=== PATIENT | female | born 1945 | race Caucasian/White ===

== ENCOUNTER → 2016-11-16 | Outpatient (CLI) | payer OTHER, MEDICARE | LOC: RAD 01:53 | DX: Z12.31 Encounter for screening mammogram for malignant neoplasm of breast (principal) ==

== ENCOUNTER 2016-11-29 11:40 | Emergency (ER) | payer OTHER, MEDICARE ==
[~2016-11-29] VITALS: Ht 160 cm; Wt 54.4 kg
[2016-11-29] MEDS ORDERED: LEXAPRO20 MG PO (11:57)
[2016-11-29] MEDS ORDERED: WELLBUTRIN SR150 MG PO (11:57)
[2016-11-29] MEDS ORDERED: ESTROPIPATE0.75 MG PO (11:58)
[2016-11-29] MEDS ORDERED: HYDROCHLOROTHIA25 M1 PO (11:58)
[2016-11-29] MEDS ORDERED: ZOCOR40 MG PO (11:59)
[2016-11-29] MEDS ORDERED: SINGULAIR 10 MG10 M1 PO (11:59)
[2016-11-29] MEDS ORDERED: LEVOTHYROXINE0.05 MG PO (11:59)
[2016-11-29] MEDS ORDERED: TRAZODONE HCL100 MG PO (11:59)
[2016-11-29] MEDS ORDERED: AMBIEN 5 MG TABL5 M1 PO (12:00)
[2016-11-29] MEDS ORDERED: VALTREX 500 MG500 M1 PO (12:00)
[2016-11-29 12:24] LABS: URINE BILIRUBIN NEGATIVE (Negative); URINE BLOOD NEGATIVE (Negative); URINE COLOR YELLOW; URINE GLUCOSE-RANDOM* NEGATIVE (Negative); URINE KETONES NEGATIVE (Negative); URINE NITRITE NEGATIVE (Negative); URINE PROTEIN (DIPSTICK) NEGATIVE (Negative); URINE UROBILINOGEN 0.2 E.U./dl (0.2-1.0)
[2016-11-29 12:31] LABS: HEMATOCRIT 37.5 % (37.0-47.0); HEMOGLOBIN 12.8 gm/dL (12.0-15.0); MCH 30.1 pg (26.0-34.0); MCV 88.7 fL (80.0-100.0); PLATELET COUNT 289 thou/uL (150-400); RBC 4.23 mil/uL (4.20-5.00); RDW 13.3 % (10.5-14.5); WBC 22.8 thou/uL (4.0-11.0)
[2016-11-29 12:37] LABS: MANUAL DIFF YES
[2016-11-29 13:00] LABS: ABSOLUTE NEUTROPHILS 20.5 thou/uL (1.4-8.2); PLATELET ESTIMATE NORMAL; TOTAL CELL COUNT 100
[2016-11-29 13:16] LABS: POTASSIUM 4.1 mmol/L (3.5-5.1)
[2016-11-29 13:22] LABS: ALBUMIN 3.4 g/dL (3.4-5.0); TOTAL BILIRUBIN 0.5 mg/dL (<0.1-1.0); TOTAL PROTEIN 6.3 g/dL (6.4-8.2)
[2016-11-29] MEDS ORDERED: ONDANSETRON HCL4 M2 PO (15:19)
[2016-11-29] MEDS ORDERED: FLAGYL500 M1 PO (15:19)
[2016-11-29] MEDS ORDERED: CIPRO500 MG PO (15:19)
[2016-11-29] MEDS ORDERED: NORCO 5-325 TA1 EACH PO (15:22)
[2016-11-29 15:50] VITALS: BP 104/49
== END 2016-11-29 16:00 | disposition home or self-care (01) ==
LOC: ER 11:40
PROVIDERS: Physician Assistant
DX: K57.92 Diverticulitis of intestine, part unspecified, without perforation or abscess without bleeding (principal); I10 Essential (primary) hypertension; E03.9 Hypothyroidism, unspecified; F32.9 Major depressive disorder, single episode, unspecified; F10.99 Alcohol use, unspecified with unspecified alcohol-induced disorder; Z98.890 Other specified postprocedural states; Z88.1 Allergy status to other antibiotic agents; Z88.2 Allergy status to sulfonamides; Z88.5 Allergy status to narcotic agent

== ENCOUNTER 2016-12-02 09:37 | Inpatient (IN) | payer OTHER, MEDICARE ==
[~2016-12-02] VITALS: Ht 160 cm; Wt 54.4 kg
--- NOTE | ~2016-12-02 | HC ---
[facility] [place] [address] CONSULTATION Name: MARCIA WALKER Room #: 418-P ADM IN M.R.#: [id number] Admission: 12/02/16 Attend Phys: Dennis Edwards DO Discharge: Date of : 47 Report #: [id number] THIS REPORT FOR: //name// CC: Ezio Fan MD DATE OF SERVICE: 12/03/2016 HISTORY OF PRESENT ILLNESS: The patient is a 71-year-old female began having significant abdominal pain on morning. She is followed by Dr. Saeed Fan, be evaluated in the emergency room. This was on November 29. CT scan of the abdomen and pelvis was performed and showed findings suggestion of mild colitis/diverticulitis of the mid sigmoid colon without evidence of pericolonic inflammatory mass or abscess. The patient was placed on ciprofloxacin and Flagyl orally and discharged home. Unfortunately, she did not improve over the next several days and therefore was reevaluated on 12/02/2016, in the emergency room and admitted. A repeat CT scan was performed on admission, area of inflammation just superior to the sigmoid colon has become more prominent than on the prior study and findings remained consistent with acute diverticulitis. No evidence of abscess. The patient is now on IV antibiotics, meropenem. Dr. Ezio lBanco has evaluated the patient as well as Dr. Gunnar Cohen. She is feeling somewhat better today. She is currently on clear liquid diet. She did have a bowel movement earlier today, which was loose, but denies any blood in her stools. She apparently had her most recent colonoscopy in 2013, by Dr. Susy Wayne; however, due to the tortuous nature of her sigmoid colon, she was not able to advance the scope through this area, therefore, a barium enema was performed at that time, which showed significant diverticulosis and some mild narrowing. She has a history of irritable bowel syndrome. She has a questionable history of ulcerative colitis when she was younger and was reportedly taking sulfa for several years, but she is not on any medications at this time for her ulcerative colitis. PAST MEDICAL HISTORY: Diverticulosis, this is her first episode of diverticulitis, history of irritable bowel syndrome, possible history of ulcerative colitis, previous history of ovarian cyst, status post surgery; hypothyroidism, hypertension, and history of depression. ALLERGIES: To AMOXICILLIN, CODEINE, and SULFA. MEDICATIONS ON ADMISSION: Wellbutrin, Lexapro, hydrochlorothiazide, Synthroid, Singulair, Zocor, trazodone, , Ambien, and recently on Cipro and Flagyl. REVIEW OF SYSTEMS: As per HPI. [facility] [address] [place] [address] CONSULTATION Name: MARCIA WALKER Room #: 418-P [facility] IN M.R.#: [id number] Admission: 12/02/16 Attend Phys: Dennis Edwards DO Discharge: Date of : 47 Report #: [id number] FAMILY HISTORY: Negative for colon cancer. SOCIAL HISTORY: She denies any tobacco use. She reports occasional alcohol use. PHYSICAL EXAMINATION: VITAL SIGNS: Temperature is 98.4, pulse 78, blood pressure 124/71, and respiratory rate is 16. GENERAL: She is alert and oriented x3, in no acute distress. HEENT: Sclerae are nonicteric. Oropharynx is clear. NECK: Supple without lymphadenopathy. CARDIOVASCULAR: Regular rate and rhythm. CHEST: Clear to auscultation bilaterally. ABDOMEN: Soft. She is tender to palpation, more on the left than right. She is nondistended. Positive bowel sounds. EXTREMITIES: No cyanosis, clubbing, or edema. LABS: Sodium 141, potassium 3.7, chloride 105, bicarb 29, BUN 12, creatinine 1.3, glucose 116. AST is 17, lipase 104, total bili 0.3, alk phos 86, ALT is 17, albumin 2.9. WBC is 12.8, on the it was 22.8, hemoglobin 11.7, MCV 89.8, platelet count is 259. ASSESSMENT AND PLAN: Diverticulitis, the patient's first episode, agree with current regimen. The patient appears to be improving now on IV meropenem. She is afebrile at this time. Her white count has improved and she is having less tenderness. We would consider trying a repeat colonoscopy in the next 1-2 months. We will continue to follow. Thank you for allowing me to participate in her care. <ELECTRONICALLY SIGNED> By: Kevin Romero MD 12/04/16 1339 1718 [id number] Kevin Romero MD /nt
--- NOTE | ~2016-12-02 | HC ---
[facility] [place] [address] CONSULTATION Name: MARCIA WALKER Room #: 418-P ADM IN M.R.#: [id number] Admission: 12/02/16 Attend Phys: Dennis Edwards DO Discharge: Date of : 47 Report #: [id number] THIS REPORT FOR: //name// CC: Quentin Jeffrey MD DATE OF SERVICE: 12/02/2016 HISTORY OF PRESENT ILLNESS: The patient is a 71-year-old who became ill . She woke up with abdominal pain. She points to the left lower quadrant, but the pain was described to all lower abdomen. She had nausea and fever. Her last bowel movement was Saturday. She has not had any bowel movements since Saturday. She is passing small gas. She had a temperature of 101 on Saturday. She was visited by Dr. Fan, who recommended that she come back to the Emergency Room after he saw her Saturday. She did have a high white count 22,000 in the Emergency Room on . Today, she has a white count of 12,000. Had a repeat CT that shows progressive diverticulitis that is more prominent in the CT scan on . There is no free air. There is no sign of abscess. There is recognizable inflammation there. She has small pleural effusion. The patient is being admitted for treatment with IV antibiotic and bowel rest. The patient does have a chronic history of irritable bowel and ulcerative colitis. Her sister apparently has had some colitis infections. Another sister with ulcerative colitis. No family history of colon cancer. The patient did have an attempted colonoscopy in 2013, which was not successful due to a narrowing and tortuosity. This was by Dr. Wayne. The patient did have a barium enema on 09/09/2013. This did show extensive diverticulosis, mucosal irregularity, wall thickening of the sigmoid colon. No mass effect. Her colonoscopy prior to this would have been about 2008 and that was able to be accomplished. The patient has had three surgery for [employer], ovarian cyst disease and did have her appendix removed on one of these surgeries. The patient also has had abdominoplasty. She has not eaten anything different from what she has stuck on her usual diet. PAST MEDICAL HISTORY: She is hypothyroid, hypertension and depression. SOCIAL HISTORY: Does not smoke, drinks twice a week. PHYSICAL EXAMINATION: GENERAL: The patient is an elderly female. The patient is alert and oriented, not in acute distress. The patient is coherent given a good history. LUNGS: Clear. CARDIOVASCULAR: Heart regular rate and rhythm. ABDOMEN: There is abdominoplasty surgery. She has the usual chest tightness from the surgery. She is tender in the lower quadrant on the left side. [address] [address] CONSULTATION Name: MARCAI WALKER Room #: 418-P [facility] IN M.R.#: [id number] Admission: 12/02/16 Attend Phys: Dennis Edwards DO Discharge: Date of : 47 Report #: [id number] Possible inflammation and thickening, no obvious mass. She is not tender in the upper part of the abdomen. Bowel sounds are active. EXTREMITIES: No cyanosis, clubbing or edema. CT scan was reviewed. I agree with the diagnosis of sigmoid diverticulitis. No abscess or evidence of perforation. Has a small amount of fusion probably reactive in nature. She has had history of bowel or colon issue, irritable bowel, ulcerative colitis. One wonders that may be some other previous episode, maybe early minor diverticular attacks. At this point, I ____ think she will not need surgery and she will respond with IV antibiotics. She has been on Cipro and Flagyl for 3 days. I would like to change her antibiotics, but she has allergies to amoxicillin, which was 30 years ago. It sounds like she was nauseated, which could be a reaction rather than allergy. I have talked to the nurse, Joselin and she is going to ask Infectious Disease if she should switch antibiotic regimen. We will follow the patient closely. I think clear liquids that she is on is fine. <ELECTRONICALLY SIGNED> By: Gunnar Cohen MD 12/04/16 1821 [id number] Gunnar Cohen MD /nt
[2016-12-02 09:37] VITALS: BP 107/62
[~2016-12-02 09:37] MED LIST: AMBIEN 5 MG TABL5 M1 PO; CIPRO500 MG PO; ESTROPIPATE0.75 MG PO; FLAGYL500 M1 PO; HYDROCHLOROTHIA25 M1 PO; LEVOTHYROXINE0.05 MG PO; LEXAPRO20 MG PO; NORCO 5-325 TA1 EACH PO; ONDANSETRON HCL4 M2 PO; SINGULAIR 10 MG10 M1 PO; TRAZODONE HCL100 MG PO; VALTREX 500 MG500 M1 PO; WELLBUTRIN SR150 MG PO; ZOCOR40 MG PO
[2016-12-02 10:18] LABS: HEMATOCRIT 34.2 % (37.0-47.0); HEMOGLOBIN 11.7 gm/dL (12.0-15.0); MCH 30.8 pg (26.0-34.0); MCHC 34.3 g/dL (28.0-37.0); MCV 89.8 fL (80.0-100.0); PLATELET COUNT 259 thou/uL (150-400); RBC 3.81 mil/uL (4.20-5.00); RDW 13.1 % (10.5-14.5); WBC 12.8 thou/uL (4.0-11.0)
[2016-12-02 10:20] LABS: MANUAL DIFF YES
[2016-12-02 10:26] LABS: CREATININE 1.3 mg/dL (0.6-1.0); POTASSIUM 3.7 mmol/L (3.5-5.1)
[2016-12-02 10:31] LABS: ALBUMIN 2.9 g/dL (3.4-5.0); TOTAL BILIRUBIN 0.3 mg/dL (<0.1-1.0); TOTAL PROTEIN 6.4 g/dL (6.4-8.2)
[2016-12-02 10:38] LABS: ABSOLUTE NEUTROPHILS 11.3 thou/uL (1.4-8.2); PLATELET ESTIMATE NORMAL; TOTAL CELL COUNT 100
[2016-12-02 12:08] VITALS: BP 111/57
[2016-12-02 12:37] VITALS: BP 108/63
[2016-12-02 12:54] VITALS: BP 106/64
[2016-12-02 19:15] VITALS: BP 113/58
[2016-12-03 06:29] VITALS: BP 102/56
[2016-12-03 08:00] VITALS: BP 117/68
[2016-12-03 15:45] VITALS: BP 124/71
[2016-12-03 19:30] VITALS: BP 108/57
[2016-12-04 07:01] LABS: HEMATOCRIT 31.2 % (37.0-47.0); HEMOGLOBIN 10.6 gm/dL (12.0-15.0); MCH 30.5 pg (26.0-34.0); MCHC 33.9 g/dL (28.0-37.0); MCV 89.9 fL (80.0-100.0); PLATELET COUNT 274 thou/uL (150-400); RBC 3.47 mil/uL (4.20-5.00); WBC 12.3 thou/uL (4.0-11.0)
[2016-12-04 07:04] LABS: MANUAL DIFF YES
[2016-12-04 07:12] LABS: POTASSIUM 3.5 mmol/L (3.5-5.1)
[2016-12-04 07:48] VITALS: BP 118/57
[2016-12-04 08:20] LABS: ABSOLUTE NEUTROPHILS 9.6 thou/uL (1.4-8.2); TOTAL CELL COUNT 100
[2016-12-04 08:21] LABS: ANISOCYTOSIS SLIGHT
[2016-12-04 15:32] VITALS: BP 118/57
[2016-12-04 15:45] VITALS: BP 121/70
[2016-12-04 20:05] VITALS: BP 132/79
[2016-12-04 20:17] VITALS: BP 160/70
[2016-12-05 04:55] VITALS: BP 123/68
[2016-12-05 09:39] VITALS: BP 145/67
[2016-12-05 14:52] VITALS: BP 118/57
[2016-12-05] MEDS ORDERED: MEROPENEM 1 GM V1 GM IVPB (14:57)
== END 2016-12-05 15:56 | disposition home health service (06) | DRG 871 ==
LOC: ER 09:37 → 4E 11:57 → EROBS 11:57 → 4E 12:39
PROVIDERS: Emergency Medicine; Family Medicine
PROC: B54NZZA Ultrasonography of Left Upper Extremity Veins, Guidance (ICD-10-PCS; principal; 2016-12-04)
PROC: 05HC33Z Insertion of Infusion Device into Left Basilic Vein, Percutaneous Approach (ICD-10-PCS; principal; 2016-12-04)
DX: A41.9 Sepsis, unspecified organism (principal); N17.0 Acute kidney failure with tubular necrosis; K57.32 Diverticulitis of large intestine without perforation or abscess without bleeding; K51.90 Ulcerative colitis, unspecified, without complications; K59.00 Constipation, unspecified; I10 Essential (primary) hypertension; K58.9 Irritable bowel syndrome, unspecified; E03.9 Hypothyroidism, unspecified; F32.9 Major depressive disorder, single episode, unspecified; Z90.49 Acquired absence of other specified parts of digestive tract; Z90.710 Acquired absence of both cervix and uterus; Z79.899 Other long term (current) drug therapy; Z88.2 Allergy status to sulfonamides; Z88.6 Allergy status to analgesic agent; Z88.1 Allergy status to other antibiotic agents
CPT/HCPCS: 10084; 27001

== ENCOUNTER → 2017-01-14 | Outpatient (CLI) | payer OTHER, MEDICARE ==
[~2017-01-14] VITALS: Ht 160 cm; Wt 54.4 kg
[~2017-01-14] MED LIST changes: +ASPIR 8181 MG PO; +CENTRUM SILVER1 EAC4 PO; +FISH OIL 1,001000 M2 PO; +MEROPENEM 1 GM V1 GM IVPB
--- NOTE | ~2017-01-14 | P ---
[facility] [place] [address] PROCEDURE REPORT Name: MARCIA WALKER Room #: REG [facility]#: [id number] Admission: 01/14/17 Attend Phys: Kevin Abbott Discharge: Date of : 47 Report #: [id number] THIS REPORT FOR: //name// CC: . Dr. Celso Alicea'MARISELA Fan DATE OF SERVICE: 01/14/2017 PROCEDURE PERFORMED: Colonoscopy. HISTORY OF PRESENT ILLNESS: The patient is a 71-year-old female who was hospitalized for an episode of diverticulitis in November of this year. This was her first episode. She is here for followup colonoscopy. Attempted colonoscopy in 2013 was unsuccessful due to tortuous nature of her sigmoid colon. She does report some mild abdominal pain at times, but feeling close to back to baseline. She denies any fevers or chills. No family history of colon cancer. DESCRIPTION OF PROCEDURE: The risks and benefits of the procedure were explained to the patient, those risks including but not limited to bleeding, perforation, the risk of sedation. She understood these risks and gave informed consent. Sedation was given using propofol per anesthesia. Next, a digital rectal exam was initially performed, which was normal. Next, using a pediatric Fujinon colonoscope, the scope was placed in the patient's anus and advanced under direct vision to the cecum. The overall prep was excellent. The cecum and ileocecal valve were normal in appearance. There is evidence of pandiverticulosis, no evidence of inflammation, otherwise normal ascending, transverse and descending colon. The sigmoid colon was tortuous. No obvious strictures were noted. The rectal mucosa was normal. On retroflexion, there were small to medium sized internal hemorrhoids. The scope was then withdrawn and the procedure terminated. The patient tolerated the procedure well. IMPRESSION: 1. Pandiverticulosis. 2. Internal hemorrhoids. 3. Otherwise, normal colonoscopy. RECOMMENDATIONS: The patient is considering surgical resection of sigmoid colon with Dr. Susy Wayne. [address] [address] PROCEDURE REPORT Name: MARCIA WALKER Room #: REG [facility] Ashlyn#: [id number] Admission: 01/14/17 Attend Phys: Kevin Abbott Discharge: Date of : 47 Report #: [id number] Thank you for allowing me to participate in her care. <ELECTRONICALLY SIGNED> By: Kevin Romero MD 01/15/17 1234 [id number] Kevin Romero MD /nt
== END | disposition home or self-care (01) ==
LOC: GI 07:33
DX: K57.30 Diverticulosis of large intestine without perforation or abscess without bleeding (principal); K64.8 Other hemorrhoids; I10 Essential (primary) hypertension; E03.9 Hypothyroidism, unspecified; F32.89 Other specified depressive episodes; F41.8 Other specified anxiety disorders; Z90.710 Acquired absence of both cervix and uterus; Z98.890 Other specified postprocedural states; Z90.49 Acquired absence of other specified parts of digestive tract; Z88.0 Allergy status to penicillin; Z88.2 Allergy status to sulfonamides; Z88.6 Allergy status to analgesic agent; Z79.82 Long term (current) use of aspirin; Z79.899 Other long term (current) drug therapy
CPT/HCPCS: 62110; 62900

== ENCOUNTER → 2017-11-19 | Outpatient (CLI) | payer OTHER, MEDICARE ==
[~2017-11-19] MED LIST changes: +NABUMETONE 500500 M1 PO; +SYNTHROID75 MCG PO; +TRAMADOL 50 MG50 MG PO; +ZANAFLEX2 MG PO
== END ==
LOC: RAD 04:24
DX: Z12.31 Encounter for screening mammogram for malignant neoplasm of breast (principal); Z78.0 Asymptomatic menopausal state

== ENCOUNTER → 2017-11-20 | Outpatient (CLI) | payer OTHER, MEDICARE ==
[~2017-11-20] VITALS: Ht 157.5 cm; Wt 54.4 kg
--- NOTE | ~2017-11-20 | HPC ---
[facility] [address] [place] [address] PAIN MANAGEMENT CONSULTATION Name: MARCIA WALKER [id number] Admission: 11/20/17 Attend Phys: Dennis Cevallos DO Discharge: Date of : 47 Report #: [id number] THIS REPORT FOR: //name// CC: Dennis Fan DATE OF SERVICE: 11/20/2017 REFERRING PHYSICIAN: Saeed Fan M.D. CHIEF COMPLAINT: Myofascial pain. HISTORY OF PRESENT ILLNESS: As you know, the patient is a 72-year-old female who returns today in followup visit requesting trigger point injections to be provided. The patient apparently has had trigger points done by Dr. Sandra in the past with good efficacy. The patient's reporting mainly myofascial symptoms involving the paraspinal musculature of the mid thoracic area. She has denied injury or trauma or changes in medical history. She indicates that the trigger points to address the right paraspinal musculature pain she has been recently experiencing. She has been referred to our clinic by her primary care team to undergo these trigger point injections. She is placing pain score today at 6-7/10. The patient describes the pain as continuous, steady and constant and describes pain as cramping, aching, sharp and tender, places pain score today 6-7/10, daily average of 5/10, worst pain has been is 10/10. The patient indicates movement exacerbates symptoms and rest and nonsteroidal anti-inflammatories tend to improve pain. She has trialled on minimal treatment for the symptoms but has begun physical therapy and stretching exercises. She has been referred to trial trigger point injections. PAST MEDICAL HISTORY: 1. Allergic rhinitis. 2. Diverticulitis. 3. Hypertension. 4. Hypercholesterolemia. 5. Hypothyroidism. 6. Postmenopausal symptoms. 7. Migraine headaches. PAST SURGICAL HISTORY: 1. Bilateral salpingo-oophorectomy. 2. Cosmetic surgery, facial. 3. Hysterectomy. 4. Laparoscopic colon resection. 5. Rhinoplasty. [facility] [address] [place] [address] PAIN MANAGEMENT CONSULTATION Name: MARCIA WALKER KRISHAN Room #: REG [facility].#: [id number] Admission: 11/20/17 Attend Phys: Dennis Cevallos DO Discharge: Date of : 47 Report #: [id number] SOCIAL HISTORY: The patient is a reformed smoker. She denies IV or illicit drug use. She does use alcohol. 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 She is unaccompanied today. REVIEW OF SYSTEMS: Positive for fatigue and weakness, myofascial pain, difficulty with movement secondary to pain. All other review of systems negative per 12-point review of systems other than those listed in the history of present illness. PAIN IMPACT SCORE: Pain impact score 8/70 indicating mild interference of daily activities secondary to pain. ALLERGIES: PENICILLIN, SULFA, CODEINE and AMOXICILLIN. CURRENT MEDICATIONS: Tramadol 50 mg every 4 hours p.r.n. for pain, tizanidine 2 mg 3 times a day p.r.n., levothyroxine 75 mcg per day, multivitamin 1 tab per day, aspirin 81 mg per day, zolpidem 5 mg p.o. at bedtime, valacyclovir 500 mg p.r.n., trazodone 100 mg once a day, simvastatin 40 mg per day, montelukast sodium 10 mg per day, hydrochlorothiazide 25 mg per day, estropipate 0.75 mg once a day, escitalopram 20 mg per day and bupropion 150 mg once a day. IMAGING DATA: No imaging available. PQRS: The patient has osteoarthritis of the low back and mild bilateral hip. No rheumatoid arthritis. She is placing pain intensity today 4/10. She is not a fall risk but has had a fall in the last 3 months. She is not on blood thinners. She is treated for hypertension. She is not on opioids. She has a low risk for opioid addiction. Pain impact score 8/70, mild. PHYSICAL EXAMINATION: VITAL SIGNS: Blood pressure 109/61, pulse 75 and respiratory rate 14 and unlabored. The patient is 97% on room air. Height 5 feet 2 inches tall, weight 120 pounds and BMI calculated 21.9. GENERAL: Well-developed, well-nourished and well-hydrated 72-year-old female. She appears her stated age. She is placing current pain score at around 4-5/10. HEENT: Normocephalic and atraumatic. Pupils equal, round and reactive to light. Extraocular muscles are intact. Sclerae nonicteric without injection. NEUROLOGICAL: Cranial nerves 2 through 12 grossly intact. Speech fluent. The patient deemed a good historian. LUNGS: Clear. No wheeze, rhonchi or rales. Pain is not elicited with inhalation or exhalation. CARDIOVASCULAR: Regular. No appreciable gallop and no rub. ABDOMEN: Soft, nontender and nondistended. EXTREMITIES: Show no clubbing, no cyanosis and no edema. [address] [address] PAIN MANAGEMENT CONSULTATION Name: MARCIA WALKER Room #: REG [facility]#: [id number] Admission: 11/20/17 Attend Phys: Dennis Cevallos DO Discharge: Date of : 47 Report #: [id number] MUSCULOSKELETAL: The patient has palpatory tenderness over the paraspinal musculature of the lower thoracic upper lumbar area. There is also some tenderness along the false ribs on the right compared to left. There is no ecchymosis and no changes in skin color or texture. A deep inhalation and exhalation causes no change in overall pain. Lumbar provocation testing is met with no change in overall symptoms. Lower extremity strength and upper extremity strength is symmetrical 5/5, intact to light touch from Tl through T12 dermatomes and from L1 through S2 dermatomes. The patient has 5 discrete trigger points noted on physical exam today. These were located in the paraspinal musculature of the right lower thoracic upper lumbar area. ASSESSMENT: 1. Myofascial pain. 2. Muscle spasms, status post fall. 3. Paraspinal muscle strain. PLAN: 1. The patient has been referred to our service for paraspinal muscle strain and muscle spasming of the lower thoracic upper lumbar area on the right. The patient sustained a fall, which I believe caused exacerbation of chronic contractions of the paraspinal musculature. It does appear the patient has 5 different trigger points all which radiate the patient's typical pattern of distribution. There does not appear to be any fractures or dislocations in the area. I am not concerned of any vertebral compression fractures nor fractures of the ribs as the patient has no ecchymosis and no changes in pain with inhalation and exhalation. It does appear the patient is suffering from myofascial symptoms and was referred to our clinic to trial trigger point injections. We have discussed with the patient the treatment for myofascial symptoms, which include physical therapy, stretching exercises, warm and cold compress application to the area. We discussed the requested trigger point injections to assist in breaking the cycle of chronic contraction of musculature. We also discussed adjunctive treatments of chiropractic manipulation, myofascial release and acupuncture therapy. After reviewing the risks and benefits of all the proposed treatment options, the patient chose to begin with the trigger point injections. The patient was advised the risks and benefits of trigger point injections and these risks include but are not necessarily limited to bleeding, bruising, infection, worsening pain, no relief of pain, also risk of temporary or permanent muscle weakness, temporary or permanent nerve damage, possible pneumothorax and . The patient states understood and wished to proceed. 2. The patient was started on nabumetone 500 mg dose 1 tab p.o. t.i.d. and I have given the patient #90 tablets. I advised the patient to watch for dyspepsia, worsening blood pressure and lower extremity edema. If she notes any side effects, discontinue immediately. If no side effects and noted improvement, she can remain on the medication until which time her pain improves and then she can reduce the therapy. She was given this prescription with [address] [address] PAIN MANAGEMENT CONSULTATION Name: MARCIA WALKER KRISHAN Room #: REG [facility] Ashlyn#: [id number] Admission: 11/20/17 Attend Phys: Dennis Cevallos DO Discharge: Date of : 47 Report #: [id number] refills, 3 months' worth of medication. 3. We will see the patient back in followup visit on an as needed basis. The patient hopefully will do well with the trigger point injections and physical therapy that she has initiated. We will be available to see her back as necessary. 4. We wish to thank referring physician for the opportunity to see this patient in consultation. We will keep you apprised of her response to treatment for myofascial symptoms. Again, we wish to thank you for the opportunity to see this patient in consultation. PROCEDURE NOTE DESCRIPTION OF PROCEDURE: Trigger point injections. After obtaining written consent, the patient was placed in a seated position. By palpating, using a single finger, five trigger points were identified that reproduced the patient's typical radiating pain pattern. Trigger points were located in the paraspinal musculature of the lower thoracic upper lumbar area. Each of the target sites of injections were cleansed using aseptic technique with chlorhexidine, 27-gauge 1-1/4 inch needle was advanced towards each of the trigger points until the patient's typical radiating pain pattern was reproduced. After negative aspiration for heme, 1 mL of a solution containing 1 mL 40 mg per mL, 40 mg total triamcinolone and 4 mL bupivacaine 0.5% was injected in a fanned out distribution at each trigger point for a total volume of 5 mL being given. Sterile bandage placed over each injection sites. The patient tolerated procedure well and carefully escorted to recovery room in stable condition. No apparent complications. After meeting our discharge criteria, the patient discharged home. By: [id number] Dennis Cevallos DO /jeanna
[2017-11-20 08:59] VITALS: BP 109/61
== END | disposition home or self-care (01) ==
LOC: PAIN 05:48
DX: S39.012A Strain of muscle, fascia and tendon of lower back, initial encounter (principal); M16.0 Bilateral primary osteoarthritis of hip; I10 Essential (primary) hypertension; E78.00 Pure hypercholesterolemia, unspecified; E03.9 Hypothyroidism, unspecified; G43.909 Migraine, unspecified, not intractable, without status migrainosus; Z88.0 Allergy status to penicillin; Z88.2 Allergy status to sulfonamides; Z88.6 Allergy status to analgesic agent; Z88.8 Allergy status to other drugs, medicaments and biological substances; Z79.899 Other long term (current) drug therapy; Z87.891 Personal history of nicotine dependence; Z87.19 Personal history of other diseases of the digestive system; Z90.710 Acquired absence of both cervix and uterus; Z98.890 Other specified postprocedural states; Z98.0 Intestinal bypass and anastomosis status; Z79.82 Long term (current) use of aspirin; X58.XXXA Exposure to other specified factors, initial encounter; Y93.89 Activity, other specified; Y92.89 Other specified places as the place of occurrence of the external cause; Y99.8 Other external cause status

== ENCOUNTER → 2018-04-01 | Outpatient (CLI) | payer OTHER, MEDICARE | LOC: RAD 10:21 | DX: M47.815 Spondylosis without myelopathy or radiculopathy, thoracolumbar region (principal); M43.17 Spondylolisthesis, lumbosacral region ==

== ENCOUNTER → 2018-05-12 | Outpatient (CLI) | payer OTHER, MEDICARE ==
[~2018-05-12] VITALS: Ht 157.5 cm; Wt 58.2 kg
[~2018-05-12] MED LIST changes: +VOLTAREN50 MG PO
--- NOTE | ~2018-05-12 | HPC ---
[facility] [place] [address] PAIN MANAGEMENT CONSULTATION Name: MARCIA WALKER Room #: REG [facility].#: [id number] Admission: 05/12/18 Attend Phys: Jeffrey Sandra MD Discharge: Date of : 49 Report #: [id number] THIS REPORT FOR: //name// CC: Saeed Sandra DATE OF SERVICE: 05/12/2018 CHIEF COMPLAINT: Lumbosacral pain with MRI evidence of L5-S1 anterolisthesis. The patient returns to the clinic today for the first time in many years. She has increasing back pain. The pain is mostly spondylitic with perhaps some mild radicular features, but the predominant pain is in the lumbosacral region. It is worsened by back extension. She is very active and enjoys exercise. She has kept herself very fit. This has been somewhat limiting for her day-to-day activities and she was hopeful that we might have some suggestions either injection or medication. She is already doing plenty of appropriate exercise I believe, does not smoke and is living a very healthy lifestyle. Currently, she scores her pain as a 4 today, worse with standing. It is higher in the back at the level where she had some additional spondylitic changes and a compensatory retrolisthesis of L4-L5. I found this to be quite moderate. MEDICATIONS: Tramadol p.r.n., levothyroxine, multivitamins, aspirin, zolpidem, Valtrex, trazodone, simvastatin, montelukast, hydrochlorothiazide, estropipate, Lexapro and bupropion. PHYSICAL EXAMINATION: She is 5 feet 2 inches, 128 pounds and BMI is 23.4. She moves easily from sitting to standing position. Her gait is stable. She is not a fall risk. She has some tenderness across the low back, pain with back extension and improved with flexion. Rotational movements and salo-fh-fdrt tilt are both performed without limitations. Blood pressure 124/62, heart rate 70, respirations 14 and O2 sat 96. IMPRESSION: Low back pain related to spondylolisthesis with mild radiculopathy. RECOMMENDATIONS: We talked about the treatment of the facet joints with injections, diagnostic blocks and radiofrequency. I find this a laborious treatment that is not always successful and even when successful after many visits and expensive procedure, it is not permanent and the duration of response is limited. I also I am concerned about denervating multiple joints given the fact that there is probably also some denervation of small muscles involved in the posterior elements. An epidural steroid injection for many patients with spondylolisthesis has [address] [address] PAIN MANAGEMENT CONSULTATION Name: MARCIA WALKER KRISHAN Room #: REG [facility] Goldberg#: [id number] Admission: 05/12/18 Attend Phys: Jeffrey Sandra MD Discharge: Date of : 49 Report #: [id number] provided meaningful relief with a good duration of response and I recommend a trial of an injection today and we will see how she does. For this to be of value it would need to provide meaningful relief for many months and it can be repeated in the future as a treatment modality. We talked a bit about medications including nonsteroidal anti-inflammatory medications and rotation to a different nonsteroidal might be helpful. We talked about the GI, renal and cardiac side effects. She will discontinue nabumetone and try diclofenac 50 mg twice a day. PROCEDURE: Lumbar epidural injection under fluoroscopic guidance. She was taken to the fluoroscopic suite, placed prone and skin prepped with ChloraPrep. Skin anesthetized over the L3-L4. A 20-gauge Tuohy epidural needle advanced first attempt to the epidural space with loss of resistance technique. There was no blood nor CSF aspirated. 1 mL of Omnipaque injected. Good spread of dye observed in the epidural space followed by 3 mL of 0.5% lidocaine mixed with 80 mg of triamcinolone. She tolerated the procedure well and was observed for 45 minutes and discharged. Followup visit planned by phone. By: [id number] Jeffrey Sandra MD /jeanna
[2018-05-12 15:52] VITALS: BP 124/62
--- NOTE | 2018-05-12 16:14 | NUR ---
Pain Clinic Assessment: 1. History of Osteoarthritis: NONE History of Rheumatoid Arthritis: NONE 2. Height: 5 ft. 2 in. 157.5 cm. Weight: 128.2 lb. oz. 58.151 kg. Patient's BMI: 23.4 3. Vital Signs: BP: 124/62 Pulse: 70 Resp: 14 Temp: 02 Sat: 96 ECG Mon: 4. Pain Intensity: 4-TODAY 5. Fall Risk: Dizziness: N Needs help standing or walking: N Fallen in the last 3 months: N Fall risk comments: 6. Patient on Blood Thinner: None 7. History of Hypertension: Y 8. Opioid Therapy greater than 6 weeks: N Opiate Contract Signed: 9. Risk Assessment Tool Provided: 10. Functional Assessment Tool: 11. Recreational Drug Use: Never Drug Type: Tobacco Use: Never Smoker Tobacco Type: Amount or Packs/day: How Many Years: Alcohol Use: Yes Frequency: Quant:
== END | disposition home or self-care (01) ==
LOC: PAIN 14:50
DX: M54.16 Radiculopathy, lumbar region (principal); M43.16 Spondylolisthesis, lumbar region; Z79.899 Other long term (current) drug therapy; Z79.82 Long term (current) use of aspirin; Z88.0 Allergy status to penicillin; Z88.2 Allergy status to sulfonamides; Z88.8 Allergy status to other drugs, medicaments and biological substances; Z87.19 Personal history of other diseases of the digestive system

== ENCOUNTER → 2018-08-15 | Outpatient (CLI) | payer OTHER, MEDICARE ==
[~2018-08-15] VITALS: Ht 157.5 cm; Wt 56.2 kg
[~2018-08-15] MED LIST changes: +MEDROLDOSEPACK PO
--- NOTE | ~2018-08-15 | HPC ---
[facility] [place] [place] [address] PAIN MANAGEMENT CONSULTATION Name: MARCIA WALKER Room #: REG [facility] Pedro.#: [id number] Admission: 08/15/18 ������������������ Attend Phys: Dario Jarrell MD Discharge: ������������������ Date of : 49 Report #: [id number] THIS REPORT FOR: //name// CC: Dario Fan DATE OF SERVICE: 08/15/2018 CHIEF COMPLAINT: Low back pain. HISTORY: The patient is a 73-year-old female who has been seen and followed in the pain clinic by Dr. Jeffrey Sandra. She has a history of lumbar radiculopathy. She has undergone epidural steroid injections in the past. She has returned today for treatment. She had some spondylytic changes with radicular pain in the L3-L4 dermatomal distribution. She has undergone epidural steroid injections at this level in the past. She has found that this has been quite successful. She is contemplating going to [place]. She would like to undergo an epidural steroid injection at this point to help decrease the pain and discomfort. She has had no complications from the injections in the past. She has had some problems in the past with increased pain and discomfort with prolonged standing and activity. ALLERGIES: PENICILLIN, SULFA, CODEINE, AND AMOXICILLIN. CURRENT MEDICATIONS: Voltaren 50 mg b.i.d., Synthroid 75 mcg, multivitamin, Centrum Silver, aspirin 81 mg, Ambien 5 mg at bedtime, Valtrex 500 mg p.r.n. ____ blisters, trazodone 100 mg at bedtime, simvastatin 40 mg, Singulair 10 mg, hydrochlorothiazide 25 mg, Estropipate 0.75 mg, escitalopram 20 mg, and Wellbutrin 150 mg. PAIN CLINIC ASSESSMENT AND PQRS: 1. History of osteoarthritis. The patient is not being treated for osteoarthritis. 2. Rheumatoid arthritis. The patient is not being treated for rheumatoid arthritis. 3. Height 5 feet 2 inches, weight 124 pounds, BMI is 22.7. 4. Vital signs: Blood pressure 118/69, pulse 70, respiratory rate 14, room air saturation 98%. 5. Pain intensity 10/13. 6. Fall risk. The patient has not fallen in the last 3 months. 7. Blood thinner. The patient is not on a blood thinning medication. 8. Hypertension. The patient is being treated for hypertension. 9. Opioids greater than 6 months. The patient is not on chronic opioid medication. 10. Risk assessment tool, low for opioid use. 11. [place] [address] PAIN MANAGEMENT CONSULTATION Name: MARCIA WALKER Room #: REG [facility]#: [id number] Admission: 08/15/18 ������������������ Attend Phys: Dario Jarrell MD Discharge: ������������������ Date of : 49 Report #: [id number] 12. Recreational drug use. The patient denies use of recreational drugs. 13. Tobacco: The patient has never smoked. 14. Alcohol. The patient drinks about 3 alcoholic beverages weekly. PHYSICAL EXAMINATION: GENERAL: The patient is a well-developed, well-nourished white female. Appears her stated age. She is alert and oriented x 3. Her affect is appropriate. Speech is fluent. HEENT: Normocephalic, atraumatic. Extraocular eye muscles intact. Sclerae nonicteric. Mucous membranes are moist. NECK: Without adenopathy or JVD. MUSCULOSKELETAL: Upper extremity muscle strength is judged to be 5-/5 for the major muscle groups in the upper extremity. The patient is with no abdominal discomfort. Lower extremity, the patient complains of pain and discomfort in the left lower extremity in the L3-L4 dermatomal distribution. Notes some weakness, tenderness as well as pain that radiates into both buttocks. Rates it as a 6/10. Notes pain is worse with movement, sitting and alleviated somewhat with medications as well as with exercise. IMPRESSION: 1. Lumbar radiculopathy. 2. Hypertension. 3. Hypercholesterolemia. 4. Hypothyroidism. RECOMMENDATIONS: We discussed treatment options with the patient. Risks and benefits of an epidural steroid injection were discussed. The patient is aware of the possible complications, which could include but are not limited to infection, worsening pain, no improvement in pain, bleeding, nerve damage, and spinal headache, and the patient elects to proceed. PROCEDURE NOTE: The patient was taken to the procedure area. She was then assisted in getting on the examination table. A pillow was placed under her abdomen to bolster an improved positioning. A 0.25% bupivacaine was then injected in the left L3-L4 paracentral area. A 17-gauge Tuohy with loss of resistance technique was then placed in the area. Aspiration was negative. A total of 80 mg Depo-Medrol, 40 mg triamcinolone and 2 mL of 0.25% bupivacaine was injected. The patient tolerated the procedure well. There were no complications. She remained in the Pain Clinic for an appropriate amount of time. Total of 10 seconds fluoroscopy time was used. The patient's pain decreased to 2 at the time of discharge. She states that she is going out of [address] [address] PAIN MANAGEMENT CONSULTATION Name: MARCIA WALKER Room #: REG [facility] Vasquez.#: [id number] Admission: 08/15/18 ������������������ Attend Phys: Dario Jarrell MD Discharge: ������������������ Date of : 49 Report #: [id number] country. We will provide her with a Medrol Dosepak to take should she notice worsening of her pain in the interim. ��������������������������������������������� ���������������������������������������� By: ��������������������������������������������� [id number] Dario Jarrell MD /jeanna
[2018-08-15 10:11] VITALS: BP 118/69
--- NOTE | 2018-08-15 10:16 | NUR ---
Pain Clinic Assessment: 1. History of Osteoarthritis: NONE History of Rheumatoid Arthritis: NONE 2. Height: 5 ft. 2 in. 157.5 cm. Weight: 124.0 lb. oz. 56.246 kg. Patient's BMI: 22.7 3. Vital Signs: BP: 118/69 Pulse: 70 Resp: 14 Temp: 02 Sat: 98 ECG Mon: 4. Pain Intensity: 6 5. Fall Risk: Dizziness: N Needs help standing or walking: N Fallen in the last 3 months: N Fall risk comments: 6. Patient on Blood Thinner: None 7. History of Hypertension: Y 8. Opioid Therapy greater than 6 weeks: N Opiate Contract Signed: 9. Risk Assessment Tool Provided: 10. Functional Assessment Tool: 11. Recreational Drug Use: Never Drug Type: Tobacco Use: Never Smoker Tobacco Type: Amount or Packs/day: How Many Years: Alcohol Use: Yes Frequency: Weekly Quant: 3
== END | disposition home or self-care (01) ==
LOC: PAIN 06:52
DX: M54.16 Radiculopathy, lumbar region (principal); G89.29 Other chronic pain; I10 Essential (primary) hypertension; E78.00 Pure hypercholesterolemia, unspecified; E03.9 Hypothyroidism, unspecified; Z88.0 Allergy status to penicillin; Z88.2 Allergy status to sulfonamides; Z88.8 Allergy status to other drugs, medicaments and biological substances; Z79.899 Other long term (current) drug therapy; Z98.890 Other specified postprocedural states; Z87.19 Personal history of other diseases of the digestive system

== ENCOUNTER → 2018-11-20 | Outpatient (CLI) | payer OTHER, MEDICARE | LOC: RAD 02:27 | DX: Z12.31 Encounter for screening mammogram for malignant neoplasm of breast (principal) ==

== ENCOUNTER → 2019-04-08 | Outpatient (CLI) | payer OTHER, MEDICARE ==
[~2019-04-08] VITALS: Ht 157.5 cm; Wt 53.3 kg
[2019-04-08 10:39] VITALS: BP 136/80
--- NOTE | 2019-04-08 10:55 | NUR ---
Pain Clinic Assessment: 1. History of Osteoarthritis: NECK BACK History of Rheumatoid Arthritis: NONE 2. Height: 5 ft. 2 in. 157.5 cm. Weight: 117.4 lb. oz. 53.252 kg. Patient's BMI: 21.5 3. Vital Signs: BP: 136/80 Pulse: 68 Resp: 14 Temp: 02 Sat: 100 ECG Mon: 4. Pain Intensity: 7-8 5. Fall Risk: Dizziness: N Needs help standing or walking: N Fallen in the last 3 months: N Fall risk comments: 6. Patient on Blood Thinner: None 7. History of Hypertension: Y 8. Opioid Therapy greater than 6 weeks: N Opiate Contract Signed: 9. Risk Assessment Tool Provided: LOW RISK 05/08 10. Functional Assessment Tool: 11. Recreational Drug Use: Never Drug Type: Tobacco Use: Never Smoker Tobacco Type: Amount or Packs/day: How Many Years: Alcohol Use: Yes Frequency: Weekly Quant: 3
--- NOTE | 2019-04-22 13:08 | HPC ---
[facility] [place] [address] PAIN MANAGEMENT CONSULTATION Name: MARCIA WALKER [id number] Admission: 04/08/19 Attend Phys: Dario Jarrell MD Discharge: Date of : 47 Report #: [id number] THIS REPORT FOR: //name// CC: Dario Friasjan DATE OF SERVICE: 04/08/2019 CHIEF COMPLAINT: Neck pain and pain in the right back area. HISTORY: The patient is a 74-year-old female who has been followed in the pain clinic because of lumbar radicular pain. She returns today with complaint of pain involving her neck and upper back. Rates pain as a 7-8/10. Notes that there is tenderness aching, tight and is experiencing muscle spasms. Notes the pain has improved somewhat with use of medication as well as stretching. She does participate in yoga. She is anticipating going to [place] with a few of her friends. At this juncture, she has noted some increased pain and would like to have it evaluated and treated. ALLERGIES: CODEINE, AMOXICILLIN. CURRENT MEDICATIONS: Synthroid 75 mcg, Centrum Silver tablets, aspirin 81 mg, Ambien 5 mg, Valtrex 500 p.r.n. fever blisters, trazodone 100 mg for sleeplessness, simvastatin 40 mg, Singulair 10 mg, hydrochlorothiazide 25 mg, 0.75 mg, estropipate, Lexapro 20 mg, Wellbutrin 150 mg. PAIN CLINIC ASSESSMENT/PQRS: 1. History of osteoarthritis involving her neck, back. The patient is not being treated for rheumatoid arthritis. 2. Height 5 feet 2 inches, weight 117 pounds, BMI is 21.5. 3. Vital signs: Blood pressure 136/80, pulse 68, respiratory rate 14, room air saturation is 100%. 4. Pain intensity 7-8/10. 5. Fall history: The patient has not fallen in the last 3 months. 6. Blood thinner. The patient is not on a blood thinning medication. 7. Hypertension. The patient is being treated for hypertension. 8. Opioids greater than 6 weeks. The patient is not on an opioid regimen on a regular basis. 9. Risk assessment tool, low for opioid use. 10. Functional assessment tool ____. 11. Recreational drug use: The patient denies. 12. Tobacco: The patient has never smoked. 13. Alcohol: The patient occasionally drinks 3 alcoholic beverages weekly. PHYSICAL EXAMINATION: GENERAL: The patient is a well-developed, well-nourished [place] [address] PAIN MANAGEMENT CONSULTATION Name: MARCIA WALKER Room #: REG [facility].#: [id number] Admission: 04/08/19 Attend Phys: Dario Jarrell MD Discharge: Date of : 47 Report #: [id number] her stated age. She is alert and oriented x 3. Her affect is appropriate. Speech is fluent. HEENT: Normocephalic, atraumatic. Extraocular eye muscles intact. Sclerae nonicteric. Mucous membranes moist. NECK: Without adenopathy. MUSCULOSKELETAL: The patient has some pain and discomfort on the right side in the area of the rhomboids. Also, has pain and discomfort in the right trapezius area. The patient has some pain and discomfort in the right occipital area. She has a total of three trigger points. RECOMMENDATIONS: We discussed the treatment options with the patient. Injections with local anesthetic and steroid were reviewed. Possibility of infection, increased muscle soreness, no improvement in pain, worsening of pain and tension pneumothorax were discussed. The patient elects to proceed. PROCEDURE NOTE: The patient was placed in the sitting position. Her back was sterilely prepped with a Betadine solution. A 0.25% bupivacaine was used to anesthetize the area. First trigger point in the rhomboid area was identified. A 25-gauge needle was then advanced into the area of the trigger point. The patient states this did reproduce her discomfort. Aspiration was negative. A total of 40 mg triamcinolone was injected. Aspiration was negative. Total of 6 mL of 0.5% bupivacaine was injected. The patient tolerated the first triggerpoint well. The second trigger point in the shoulder area was identified. A 25-gauge needle was then advanced into the area of the rhomboid. The trigger point was noted. Aspiration was negative. A total of 5 mL of 0.5% bupivacaine and 40 mg triamcinolone was injected into the second trigger point. The patient was then placed in the prone position. Her occipital area was identified and cleansed. Palpation in the area of the occipital reproduced a trigger point. This trigger point was then identified and a 25-gauge needle was then advanced into this area. The patient states this did reproduce a component of the discomfort. Aspiration was negative. Total of 6 mL of 0.5% bupivacaine was injected. The patient tolerated the procedure well. She remained in the Pain Clinic for an appropriate amount of time. She will follow up in the future as needed. We would like to thank you for letting us participate in her care. We hope she continues to improve. <ELECTRONICALLY SIGNED> By: Dario Jarrell MD 04/22/19 1308 [id number] MD deangelo Barlow
== END | disposition home or self-care (01) ==
LOC: PAIN 06:59
DX: M79.18 Myalgia, other site (principal); M54.2 Cervicalgia; M54.9 Dorsalgia, unspecified; I10 Essential (primary) hypertension; Z79.899 Other long term (current) drug therapy; Z88.0 Allergy status to penicillin; Z88.2 Allergy status to sulfonamides; Z88.8 Allergy status to other drugs, medicaments and biological substances; Z79.82 Long term (current) use of aspirin

== ENCOUNTER → 2019-12-02 | Outpatient (CLI) | payer OTHER, MEDICARE ==
[~2019-12-02] MED LIST changes: +MELOXICAM15 MG PO
== END ==
LOC: BC 10:26
PROVIDERS: ATTEND Family Medicine
DX: Z12.31 Encounter for screening mammogram for malignant neoplasm of breast (principal)

== ENCOUNTER → 2019-12-09 | Outpatient (CLI) | payer OTHER, MEDICARE ==
[~2019-12-09] VITALS: Ht 157.5 cm; Wt 53.1 kg
[2019-12-09 10:26] VITALS: BP 141/77
--- NOTE | 2019-12-09 10:36 | NUR ---
Pain Clinic Assessment: 1. History of Osteoarthritis: NECK BACK History of Rheumatoid Arthritis: NONE 2. Height: 5 ft. 2 in. 157.5 cm. Weight: 117.0 lb. oz. 53.071 kg. Patient's BMI: 21.4 3. Vital Signs: BP: 141/77 Pulse: 72 Resp: 14 Temp: 02 Sat: 98 ECG Mon: 4. Pain Intensity: 6-7 5. Fall Risk: Dizziness: N Needs help standing or walking: N Fallen in the last 3 months: N Fall risk comments: 6. Patient on Blood Thinner: None 7. History of Hypertension: Y 8. Opioid Therapy greater than 6 weeks: N Opiate Contract Signed: 9. Risk Assessment Tool Provided: LOW RISK 05/08 10. Functional Assessment Tool: 11. Recreational Drug Use: Never Drug Type: Tobacco Use: Never Smoker Tobacco Type: Amount or Packs/day: How Many Years: Alcohol Use: Yes Frequency: Quant:
--- NOTE | 2019-12-22 08:23 | HPC ---
[facility] [place] [address] PAIN MANAGEMENT CONSULTATION Name: MARCIA WALKER Room #: REG [facility].#: [id number] Admission: 12/09/19 Attend Phys: Dario Jarrell MD Discharge: Date of : 49 Report #: [id number] THIS REPORT FOR: cc: Saeed Fan MD,Saeed Jarrell,Dario Callaway MD ~ CC: Dario Fan DATE OF SERVICE: 12/09/2019 PRIMARY CARE PHYSICIAN: Saeed Fan MD CHIEF COMPLAINT: Pain in the arm, neck and back. HISTORY: The patient is a 74-year-old female who has been followed in the pain clinic because of lumbar radicular pain. She returns today indicating that she has noticed an increase in pain and discomfort in her low back. It is in the lower portion of the back. She also has some left ulnar wrist pain and tenderness. She lifted her grandson in the car seat. She noticed some increased soreness in this area. She has returned today for an injection with the hopes that this will help decrease the pain and discomfort she has. She is noticing increased pain and discomfort with walking for distance. Prolonged standing can be problematic as well. She has had epidural steroid injections may have been beneficial. ALLERGIES: CODEINE, AMOXICILLIN. CURRENT MEDICATIONS: Synthroid 75 mcg, Centrum Silver, aspirin 81 mg, Ambien 5 mg, Valtrex 500 mg p.r.n. fever blisters, trazodone 100 mg for sleepiness, simvastatin 40 mg, Singulair 10 mg, hydrochlorothiazide 25 mg, 0.75 mg Estropipate, Lexapro 20 mg, Wellbutrin 150 mg. PAIN CLINIC ASSESSMENT AND PQRS: 1. The patient has a history of osteoarthritis involving her back and neck. She is not being treated for rheumatoid arthritis. 2. Height 5 feet 2 inches, weight 117 pounds, BMI is 21. 3. Vital Signs: Blood pressure 141/77, pulse 72, respiratory rate 14, room air saturation is 98%. 4. Fall risk. The patient has not fallen in the last 3 months. 5. Blood thinner. The patient is not on a blood thinning medication. 6. Hypertension. The patient is being treated for hypertension. 7. Opioids greater than 6 weeks. The patient receives medications from her primary physician. 8. Risk assessment tool, low for opioid use. 9. Functional assessment tool, . [facility] [address] [place] [address] PAIN MANAGEMENT CONSULTATION Name: MARCIA WALKER Room #: REG [facility]#: [id number] Admission: 12/09/19 Attend Phys: Dario Jarrell MD Discharge: Date of : 49 Report #: [id number] 10. Recreational drug use. The patient denies. 11. Tobacco: The patient has never smoked. 12. Alcohol: The patient occasionally drinks alcoholic beverages. PHYSICAL EXAMINATION: GENERAL: The patient is a well-developed, well-nourished white female. Appears her stated age. She is alert and oriented x 3. Her affect is appropriate. Speech is fluent. HEENT: Normocephalic, atraumatic. Extraocular eye muscles intact. Sclerae nonicteric. Mucous membranes are moist. NECK: Without adenopathy or JVD. MUSCULOSKELETAL: The patient has some pain and discomfort in the right side near rhomboids. She complains of some pain and discomfort in the lower portion of her back with pain that is radiating down into the L3-L4 area of her thigh. She also has some pain and discomfort in the left ulnar area of her wrist after lifting her grandson and placed him in the car seat. IMPRESSION: 1. Lumbar radiculopathy, L3-L4. 2. Hypertension. 3. Hypercholesterolemia. 4. Hypothyroidism. 5. Soreness in the left ulnar wrist after lifting her grandson and placed him in the car. RECOMMENDATIONS: We discussed treatment options with the patient. Risks and benefits of an epidural steroid injection were discussed. Possible complications of the procedure, which could include but are not limited to infection, worsening of pain, no improvement in pain, nerve damage, bleeding, headache and the patient elects to proceed. We discussed the problems with COVID-19, because of this infection she may have a more difficult time with COVID. Use of steroid medications can decrease one's immune response. We do not think that this can happen and she elects to proceed. PROCEDURE NOTE: The patient was taken to the procedure area. She was then assisted in getting on the examination table. A pillow was placed under her abdomen to bolster and improve positioning. At the L3-L4 interspace 0.25% was infiltrated and anesthetized this area. Betadine had been used and allowed to dry. A 17-gauge Tuohy with loss of resistance technique was used to gain access to the epidural space. There was no CSF, heme or paresthesia. Total of 80 mg Depo-Medrol, 40 mg triamcinolone and 2 mL of 0.25% bupivacaine was injected. The patient tolerated the procedure well. There were no complications. She remained in the Pain Clinic for an appropriate amount of time. She will follow up in the future as needed. Hopefully, the steroid injection in her back will have some peripheral and systemic effects. Hopefully, this will help the left wrist, which was injured while lifting the baby and placing him in the car seat. [facility] [address] [place] [address] PAIN MANAGEMENT CONSULTATION Name: MARCIA WALKER Room #: REG [facility].#: [id number] Admission: 12/09/19 Attend Phys: Dario Jarrell MD Discharge: Date of : 49 Report #: [id number] We would like to thank you for letting us participate in her care. She will call us if she has any concerns. <ELECTRONICALLY SIGNED> By: Dario Jarrell MD 12/22/19 0823 [id number] Dario Jarrell MD /BULMARO
== END | disposition home or self-care (01) ==
LOC: PAIN 06:51
PROVIDERS: ATTEND Anesthesiology Pain Medicine
DX: M54.16 Radiculopathy, lumbar region (principal); G89.29 Other chronic pain; I10 Essential (primary) hypertension; E78.00 Pure hypercholesterolemia, unspecified; E03.9 Hypothyroidism, unspecified; Z98.890 Other specified postprocedural states; Z79.899 Other long term (current) drug therapy; Z88.8 Allergy status to other drugs, medicaments and biological substances; Z88.0 Allergy status to penicillin

== ENCOUNTER → 2020-01-19 | Outpatient (CLI) | payer OTHER, MEDICARE | LOC: LAB 10:17 | PROVIDERS: ATTEND Family Medicine | DX: Z20.828 Contact with and (suspected) exposure to other viral communicable diseases (principal) ==

== ENCOUNTER → 2020-01-29 | Outpatient (CLI) | payer OTHER | LOC: RAD 11:35 | PROVIDERS: ATTEND Family Medicine | DX: Z13.6 Encounter for screening for cardiovascular disorders (principal); I25.10 Atherosclerotic heart disease of native coronary artery without angina pectoris; E78.00 Pure hypercholesterolemia, unspecified ==

== ENCOUNTER → 2020-03-01 | Outpatient (CLI) | payer OTHER, MEDICARE ==
[~2020-03-01] VITALS: Ht 157.5 cm; Wt 51.3 kg
[~2020-03-01] MED LIST changes: +FLEXERIL PO
--- NOTE | ~2020-03-01 | HPC ---
[facility] [place] [address] PAIN MANAGEMENT CONSULTATION Name: MARCIA WALKER Room #: REG [facility].#: [id number] Admission: 03/01/20 Attend Phys: Jeffrey Sandra MD Discharge: Date of : 49 Report #: [id number] CC: Saeed Sandra DATE OF SERVICE: 03/01/2020 Followup visit for L5-S1 anterolisthesis with low back pain and myelopathy. The patient returns to the pain clinic today with aching pain in her low back with some mild radicular features. Most of her pain remains in her low back. She has responded well to epidural injections. She has mild retrolisthesis of L2 and L3 and anterolisthesis of L5 and S1. Prior injections at L3-L4 have been helpful, although she does not feel that the last injection was quite as helpful as the prior. All have been performed above the level of her spondylolisthesis. Today after some discussion, I have suggested that we trial an epidural injection once again at L4-L5 to see if we can see improvement closer to her spondylolisthesis. As a side note at the conclusion of the procedure today, I did note that it appears to be a bit more degenerative at the disk level, although it is hard to tell from the spot films. Medications were reviewed and reconciled. There have been no significant changes. Cyclobenzaprine, levothyroxine, multivitamins, aspirin, zolpidem, valacyclovir, trazodone, simvastatin, montelukast, hydrochlorothiazide, estropipate, escitalopram, bupropion. ALLERGIES: PENICILLIN, SULFA, CODEINE, AMOXICILLIN. PQRS REVIEW: Positive for spondylosis in the cervical and lumbar region. BMI is stable at 21.4, blood pressure 141/77, heart rate 72, respirations 14, O2 sat 98, pain intensity 6-7/10. She needs no help walking or standing and has had no falls. Denies use of blood thinners. Hypertension is under treatment by Dr. Fan. She has no opioids and she is at low risk if ever needed. Her opioid risk tool score is 1 and her functional assessment score is remarkably low 4/70. She denies tobacco and drinks alcohol only a bit socially with friends. IMPRESSION: Low back pain with spondylosis and radiculopathy. Primary component is lumbosacral and she has responded favorably to single epidural injections intermittently. PROCEDURE: L4-L5 epidural steroid injection under fluoroscopic guidance. PROCEDURE NOTE: After both written and informed consent to include risk of spinal cord damage, increased pain, weakness and dural puncture, the patient was taken to the fluoroscopy suite, placed in the prone position. After sterile prep and drape, a skin wheal with lidocaine was raised. A 22-gauge epidural Tuohy needle was inserted in the midline at L4-L5 with good loss to resistance. Negative aspiration for cerebrospinal fluid or blood was noted. Then 1 mL of Omnipaque under biplanar fluoroscopy showed good spread within the epidural space. This was followed with 80 mg of triamcinolone, 3 mL of 0.5% lidocaine was then injected to flush the needle; it was removed. The patient was monitored for an appropriate period of time and discharged in good and stable condition. By: [id number] Jeffrey Sandra MD /nt
--- NOTE | 2020-03-01 10:54 | NUR ---
Pain Clinic Assessment: 1. History of Osteoarthritis: NECK BACK History of Rheumatoid Arthritis: NONE 2. Height: ft. in. cm. Weight: lb. oz. kg. Patient's BMI: 3. Vital Signs: BP: Pulse: Resp: Temp: 02 Sat: ECG Mon: 4. Pain Intensity: 7-8 5. Fall Risk: Dizziness: N Needs help standing or walking: N Fallen in the last 3 months: N Fall risk comments: 6. Patient on Blood Thinner: None 7. History of Hypertension: Y 8. Opioid Therapy greater than 6 weeks: N Opiate Contract Signed: 9. Risk Assessment Tool Provided: LOW RISK 05/08 10. Functional Assessment Tool: 11. Recreational Drug Use: Never Drug Type: Tobacco Use: Never Smoker Tobacco Type: Amount or Packs/day: How Many Years: Alcohol Use: Yes Frequency: Quant:
[2020-03-01 10:59] VITALS: BP 128/75
--- NOTE | 2020-03-01 10:59 | NUR ---
Pain Clinic Assessment: 1. History of Osteoarthritis: NECK BACK History of Rheumatoid Arthritis: NONE 2. Height: 5 ft. 2 in. 157.5 cm. Weight: 113.0 lb. oz. 51.256 kg. Patient's BMI: 20.7 3. Vital Signs: BP: 128/75 Pulse: 104 Resp: 18 Temp: 02 Sat: 100 ECG Mon: 4. Pain Intensity: 7-8 5. Fall Risk: Dizziness: N Needs help standing or walking: N Fallen in the last 3 months: N Fall risk comments: 6. Patient on Blood Thinner: None 7. History of Hypertension: Y 8. Opioid Therapy greater than 6 weeks: N Opiate Contract Signed: 9. Risk Assessment Tool Provided: LOW RISK 05/08 10. Functional Assessment Tool: 11. Recreational Drug Use: Never Drug Type: Tobacco Use: Never Smoker Tobacco Type: Amount or Packs/day: How Many Years: Alcohol Use: Yes Frequency: Quant:
== END | disposition home or self-care (01) ==
LOC: PAIN 06:58
PROVIDERS: ATTEND Anesthesiology Pain Medicine
DX: M47.27 Other spondylosis with radiculopathy, lumbosacral region (principal); G89.29 Other chronic pain; I10 Essential (primary) hypertension; M43.16 Spondylolisthesis, lumbar region; Z98.890 Other specified postprocedural states; Z79.899 Other long term (current) drug therapy; Z88.8 Allergy status to other drugs, medicaments and biological substances; Z79.82 Long term (current) use of aspirin

== ENCOUNTER → 2020-05-12 | Outpatient (CLI) | payer OTHER, MEDICARE ==
[~2020-05-12] VITALS: Ht 157.5 cm; Wt 51.8 kg
[~2020-05-12] MED LIST changes: +CALICUM 500+D1 EACH PO; +HYDROCODON-ACE1 EAC7 PO; +LIVALO2 MG PO
[2020-05-12 09:55] VITALS: BP 124/71
--- NOTE | 2020-05-12 10:13 | NUR ---
Pain Clinic Assessment: 1. History of Osteoarthritis: NECK BACK History of Rheumatoid Arthritis: NONE 2. Height: 5 ft. 2 in. 157.5 cm. Weight: 114.2 lb. oz. 51.801 kg. Patient's BMI: 20.9 3. Vital Signs: BP: 124/71 Pulse: 80 Resp: 14 Temp: 02 Sat: 100 ECG Mon: 4. Pain Intensity: 9 mornings 5. Fall Risk: Dizziness: N Needs help standing or walking: N Fallen in the last 3 months: N Fall risk comments: 6. Patient on Blood Thinner: None 7. History of Hypertension: Y 8. Opioid Therapy greater than 6 weeks: N Opiate Contract Signed: 9. Risk Assessment Tool Provided: LOW RISK 1 10. Functional Assessment Tool: 11. Recreational Drug Use: Never Drug Type: Tobacco Use: Never Smoker Tobacco Type: Amount or Packs/day: How Many Years: Alcohol Use: Yes Frequency: Weekly Quant:
== END | disposition home or self-care (01) ==
LOC: PAIN 06:38
PROVIDERS: ATTEND Anesthesiology Pain Medicine
DX: M47.816 Spondylosis without myelopathy or radiculopathy, lumbar region (principal); M43.16 Spondylolisthesis, lumbar region; G89.29 Other chronic pain; I10 Essential (primary) hypertension; M19.90 Unspecified osteoarthritis, unspecified site; Z98.890 Other specified postprocedural states; Z79.899 Other long term (current) drug therapy; Z88.0 Allergy status to penicillin; Z88.2 Allergy status to sulfonamides

== ENCOUNTER → 2020-06-02 | Outpatient (CLI) | payer OTHER, MEDICARE ==
[~2020-06-02] VITALS: Ht 157.5 cm; Wt 52.7 kg
[2020-06-02 12:32] VITALS: BP 125/77
--- NOTE | 2020-06-02 12:45 | NUR ---
Pain Clinic Assessment: 1. History of Osteoarthritis: NECK BACK THORACIC SPINE History of Rheumatoid Arthritis: NONE 2. Height: 5 ft. 2 in. 157.5 cm. Weight: 116.2 lb. oz. 52.708 kg. Patient's BMI: 21.2 3. Vital Signs: BP: 125/77 Pulse: 83 Resp: 16 Temp: 02 Sat: 98 ECG Mon: 4. Pain Intensity: 6 5. Fall Risk: Dizziness: N Needs help standing or walking: N Fallen in the last 3 months: N Fall risk comments: 6. Patient on Blood Thinner: None 7. History of Hypertension: Y 8. Opioid Therapy greater than 6 weeks: N Opiate Contract Signed: 9. Risk Assessment Tool Provided: LOW RISK 1 10. Functional Assessment Tool: 11. Recreational Drug Use: Never Drug Type: Tobacco Use: Never Smoker Tobacco Type: Amount or Packs/day: How Many Years: Alcohol Use: Yes Frequency: Weekly Quant: 5
== END | disposition home or self-care (01) ==
LOC: PAIN 07:03
PROVIDERS: ATTEND Anesthesiology Pain Medicine
DX: M47.816 Spondylosis without myelopathy or radiculopathy, lumbar region (principal); M43.16 Spondylolisthesis, lumbar region; I10 Essential (primary) hypertension; M19.90 Unspecified osteoarthritis, unspecified site; Z98.890 Other specified postprocedural states; Z79.899 Other long term (current) drug therapy; Z88.0 Allergy status to penicillin; Z88.2 Allergy status to sulfonamides; Z88.6 Allergy status to analgesic agent

== ENCOUNTER → 2020-07-18 | Outpatient (CLI) | payer OTHER, MEDICARE ==
[~2020-07-18] VITALS: Ht 157.5 cm; Wt 52.6 kg
[~2020-07-18] MED LIST changes: +CRESTOR20 MG PO
[2020-07-18 11:23] VITALS: BP 138/81
--- NOTE | 2020-07-18 11:29 | NUR ---
Pain Clinic Assessment: 1. History of Osteoarthritis: NECK BACK THORACIC SPINE History of Rheumatoid Arthritis: NONE 2. Height: 5 ft. 2 in. 157.5 cm. Weight: 116.0 lb. oz. 52.617 kg. Patient's BMI: 21.2 3. Vital Signs: BP: 138/81 Pulse: 71 Resp: 18 Temp: 02 Sat: 97 ECG Mon: 4. Pain Intensity: 8 5. Fall Risk: Dizziness: N Needs help standing or walking: N Fallen in the last 3 months: N Fall risk comments: 6. Patient on Blood Thinner: None 7. History of Hypertension: Y 8. Opioid Therapy greater than 6 weeks: N Opiate Contract Signed: 9. Risk Assessment Tool Provided: LOW RISK 1 10. Functional Assessment Tool: 11. Recreational Drug Use: Never Drug Type: Tobacco Use: Never Smoker Tobacco Type: Amount or Packs/day: How Many Years: Alcohol Use: Yes Frequency: Quant:
== END ==
LOC: PAIN 09:14
PROVIDERS: ATTEND Anesthesiology Pain Medicine
DX: M47.816 Spondylosis without myelopathy or radiculopathy, lumbar region (principal); I10 Essential (primary) hypertension; Z79.899 Other long term (current) drug therapy; Z88.0 Allergy status to penicillin; Z88.1 Allergy status to other antibiotic agents; Z88.5 Allergy status to narcotic agent; Z88.2 Allergy status to sulfonamides

== ENCOUNTER → 2020-07-26 | Outpatient (CLI) | payer OTHER, MEDICARE ==
[~2020-07-26] VITALS: Ht 157.5 cm; Wt 52.4 kg
[~2020-07-26] MED LIST changes: +CELEBREX 200 M200 MG PO
[2020-07-26 10:57] VITALS: BP 120/68
== END ==
LOC: PAIN 07-25 09:51
PROVIDERS: ATTEND Anesthesiology Pain Medicine
DX: M43.16 Spondylolisthesis, lumbar region (principal); M47.816 Spondylosis without myelopathy or radiculopathy, lumbar region; M43.17 Spondylolisthesis, lumbosacral region; M54.5 Low back pain; M48.061 Spinal stenosis, lumbar region without neurogenic claudication

== ENCOUNTER → 2020-11-17 | Outpatient (CLI) | payer OTHER, MEDICARE ==
[~2020-11-17] VITALS: Ht 157.5 cm; Wt 54.5 kg
[~2020-11-17] MED LIST changes: +CELEBREX 200 M200 M1 PO; +ZYRTEC10 M4 PO
[2020-11-17 11:03] VITALS: BP 121/68
--- NOTE | 2020-11-17 11:12 | NUR ---
Pain Clinic Assessment: 1. History of Osteoarthritis: NECK BACK THORACIC SPINE History of Rheumatoid Arthritis: NONE 2. Height: 5 ft. 2 in. 157.5 cm. Weight: 119.4 lb. oz. 54.500 kg. Patient's BMI: 21.8 3. Vital Signs: BP: 121/68 Pulse: 76 Resp: 14 Temp: 02 Sat: 98 ECG Mon: 4. Pain Intensity: 6 5. Fall Risk: Dizziness: N Needs help standing or walking: N Fallen in the last 3 months: N Fall risk comments: 6. Patient on Blood Thinner: None 7. History of Hypertension: Y 8. Opioid Therapy greater than 6 weeks: N Opiate Contract Signed: 9. Risk Assessment Tool Provided: LOW RISK 1 10. Functional Assessment Tool: 11. Recreational Drug Use: Never Drug Type: Tobacco Use: Never Smoker Tobacco Type: Amount or Packs/day: How Many Years: Alcohol Use: Yes Frequency: Weekly Quant: 2
== END ==
LOC: PAIN 06:58
PROVIDERS: ATTEND Anesthesiology Pain Medicine
DX: M47.816 Spondylosis without myelopathy or radiculopathy, lumbar region (principal); M43.17 Spondylolisthesis, lumbosacral region; Z79.899 Other long term (current) drug therapy; Z79.891 Long term (current) use of opiate analgesic

== ENCOUNTER → 2020-11-29 | Outpatient (CLI) | payer OTHER, MEDICARE | LOC: BC 12:49 | PROVIDERS: ATTEND Family Medicine | DX: Z12.31 Encounter for screening mammogram for malignant neoplasm of breast (principal) ==

== ENCOUNTER → 2021-01-06 | Outpatient (CLI) | payer OTHER, MEDICARE | LOC: NUC 11:30 | PROVIDERS: ATTEND Family Medicine | DX: Z78.0 Asymptomatic menopausal state (principal) ==

== ENCOUNTER → 2021-02-20 | Outpatient (CLI) | payer OTHER, MEDICARE ==
[~2021-02-20] VITALS: Ht 157.5 cm; Wt 55.2 kg
[~2021-02-20] MED LIST changes: +CEFUROXIME250 MG PO; +RAYOS5 MG PO
[2021-02-20 09:56] VITALS: BP 126/73
--- NOTE | 2021-02-20 10:05 | NUR ---
Pain Clinic Assessment: 1. History of Osteoarthritis: NECK BACK THORACIC SPINE History of Rheumatoid Arthritis: NONE 2. Height: 5 ft. 2 in. 157.5 cm. Weight: 121.6 lb. oz. 55.157 kg. Patient's BMI: 22.2 3. Vital Signs: BP: 126/73 Pulse: 70 Resp: 14 Temp: 02 Sat: 99 ECG Mon: 4. Pain Intensity: 6 5. Fall Risk: Dizziness: N Needs help standing or walking: N Fallen in the last 3 months: N Fall risk comments: 6. Patient on Blood Thinner: None 7. History of Hypertension: Y 8. Opioid Therapy greater than 6 weeks: N Opiate Contract Signed: 9. Risk Assessment Tool Provided: LOW RISK 1 10. Functional Assessment Tool: 11. Recreational Drug Use: Never Drug Type: Tobacco Use: Never Smoker Tobacco Type: Amount or Packs/day: How Many Years: Alcohol Use: Yes Frequency: Weekly Quant: 2
== END ==
LOC: PAIN 06:58
PROVIDERS: ATTEND Anesthesiology Pain Medicine
DX: G89.29 Other chronic pain (principal); M47.26 Other spondylosis with radiculopathy, lumbar region; Z88.1 Allergy status to other antibiotic agents; Z88.0 Allergy status to penicillin; Z88.8 Allergy status to other drugs, medicaments and biological substances; Z79.899 Other long term (current) drug therapy

== ENCOUNTER → 2021-03-23 | Outpatient (CLI) | payer OTHER, MEDICARE ==
[~2021-03-23] VITALS: Ht 157.5 cm; Wt 54.7 kg
[2021-03-23 09:16] VITALS: BP 122/78
--- NOTE | 2021-03-23 09:21 | NUR ---
Pain Clinic Assessment: 1. History of Osteoarthritis: NECK BACK THORACIC SPINE History of Rheumatoid Arthritis: NONE 2. Height: 5 ft. 2 in. 157.5 cm. Weight: 120.6 lb. oz. 54.704 kg. Patient's BMI: 22.1 3. Vital Signs: BP: 122/78 Pulse: 81 Resp: 16 Temp: 02 Sat: 98 ECG Mon: 4. Pain Intensity: 4 5. Fall Risk: Dizziness: Needs help standing or walking: Fallen in the last 3 months: Fall risk comments: 6. Patient on Blood Thinner: None 7. History of Hypertension: Y 8. Opioid Therapy greater than 6 weeks: N Opiate Contract Signed: 9. Risk Assessment Tool Provided: LOW RISK 1 10. Functional Assessment Tool: 11. Recreational Drug Use: Never Drug Type: Tobacco Use: Never Smoker Tobacco Type: Amount or Packs/day: How Many Years: Alcohol Use: Yes Frequency: Weekly Quant: 2
== END | disposition home or self-care (01) ==
LOC: PAIN 08:58
PROVIDERS: ATTEND Anesthesiology Pain Medicine
DX: M53.3 Sacrococcygeal disorders, not elsewhere classified (principal); G89.29 Other chronic pain; I10 Essential (primary) hypertension; M19.90 Unspecified osteoarthritis, unspecified site; Z98.890 Other specified postprocedural states; Z79.899 Other long term (current) drug therapy; Z88.0 Allergy status to penicillin; Z88.8 Allergy status to other drugs, medicaments and biological substances

== ENCOUNTER → 2021-06-29 | Outpatient (CLI) | payer OTHER, MEDICARE ==
[~2021-06-29] VITALS: Ht 157.5 cm; Wt 54.5 kg
[2021-06-29 13:19] VITALS: BP 120/71
--- NOTE | 2021-06-29 13:27 | NUR ---
Pain Clinic Assessment: 1. History of Osteoarthritis: NECK BACK THORACIC SPINE History of Rheumatoid Arthritis: NONE 2. Height: 5 ft. 2 in. 157.5 cm. Weight: 120.2 lb. oz. 54.522 kg. Patient's BMI: 22.0 3. Vital Signs: BP: 120/71 Pulse: 74 Resp: 14 Temp: 02 Sat: 97 ECG Mon: 4. Pain Intensity: 7 5. Fall Risk: Dizziness: N Needs help standing or walking: N Fallen in the last 3 months: N Fall risk comments: 6. Patient on Blood Thinner: None 7. History of Hypertension: Y 8. Opioid Therapy greater than 6 weeks: N Opiate Contract Signed: 9. Risk Assessment Tool Provided: LOW RISK 1 10. Functional Assessment Tool: 11. Recreational Drug Use: Never Drug Type: Tobacco Use: Never Smoker Tobacco Type: Amount or Packs/day: How Many Years: Alcohol Use: Yes Frequency: Weekly Quant: 2
== END ==
LOC: PAIN 05-01 12:07
PROVIDERS: ATTEND Clinical Nurse Specialist Adult Health
DX: M47.816 Spondylosis without myelopathy or radiculopathy, lumbar region (principal); M75.101 Unspecified rotator cuff tear or rupture of right shoulder, not specified as traumatic; G89.29 Other chronic pain; M53.3 Sacrococcygeal disorders, not elsewhere classified; Z79.899 Other long term (current) drug therapy; Z88.8 Allergy status to other drugs, medicaments and biological substances; Z88.2 Allergy status to sulfonamides